=== PATIENT | female | born 2000 | race Two or more races ===

== ENCOUNTER 2020-04-13 01:17 | Emergency (ER) | payer OTHER ==
[~2020-04-13] VITALS: Ht 157.5 cm; Wt 51.7 kg
[2020-04-13] MEDS ORDERED: KETO10TA2 PO (03:59)
[2020-04-13] MEDS ORDERED: PEPCID AC10 MG PO (03:59)
== END 2020-04-13 04:25 | disposition home or self-care (01) ==
LOC: ER 01:17
DX: S43.015A Anterior dislocation of left humerus, initial encounter (principal); X50.0XXA Overexertion from strenuous movement or load, initial encounter; Y93.89 Activity, other specified; Y92.89 Other specified places as the place of occurrence of the external cause; Y99.8 Other external cause status

== ENCOUNTER 2021-06-02 12:34 | Outpatient (CLI) | payer OTHER ==
[~2021-06-02 12:34] MED LIST: KETO10TA2 PO; PEPCID AC10 MG PO
== END 2021-06-02 13:53 | disposition home or self-care (01) ==
LOC: PRENATAL 12:34
PROVIDERS: ATTEND Obstetrics & Gynecology Maternal & Fetal Medicine
DX: O35.0XX1 Maternal care for (suspected) central nervous system malformation in fetus, fetus 1 (principal); O35.3XX1 Maternal care for (suspected) damage to fetus from viral disease in mother, fetus 1; O98.512 Other viral diseases complicating pregnancy, second trimester; Z36.89 Encounter for other specified antenatal screening; Z3A.22 22 weeks gestation of pregnancy